=== PATIENT | female | born 1995 | race African-American/Black ===

== ENCOUNTER 2025-03-18 08:34 | Emergency (ER) | payer OTHER, SELFPAY ==
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
[2025-03-18 08:52] VITALS: BP 126/84; PULSE 89; RESP 20; TEMP 36.3; O2SAT 100
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
== END 2025-03-18 10:05 | disposition home or self-care (01) ==
PROVIDERS: Emergency Provider Registered Nurse
DX: S60.222A Contusion of left hand, initial encounter (principal); S30.1XXA Contusion of abdominal wall, initial encounter; V40.5XXA Car driver injured in collision with pedestrian or animal in traffic accident, initial encounter; F17.210 Nicotine dependence, cigarettes, uncomplicated
CPT/HCPCS: 73130; 99213; G0463